=== PATIENT | male | born 2000 | race Asian ===

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

== ENCOUNTER 2022-02-03 10:30 | Outpatient (RCR) | payer OTHER, SELFPAY | END 2022-02-03 14:10 | disposition home or self-care (01) | PROVIDERS: Visit Provider Orthopaedic Surgery | DX: M25.532 Pain in left wrist (principal) | CPT/HCPCS: 97110; 97140; 97165; X5282 ==